=== PATIENT | male | born 1940 | race Caucasian/White ===

== ENCOUNTER 2023-06-11 09:20 | Outpatient (AMB) | payer MEDICARE, SELFPAY ==
--- NOTE | 2023-06-11 09:50 | AM.OFFWIN_ITS ---
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 Patient states he was walking up the stairs and tripped on the stairs and fell onto his left hand. He denies any head trauma or loss of consciousness. He states he hurt his left 3rd and 4th fingers. He denies any pain of his left hand or left wrist or left elbow or left shoulder. He denies any other injury. [facility]LY [facility] Social History Patient Tobacco Use Status: Never used Tobacco Review of Systems Const All systems reviewed & are unremarkable except as noted in HPI and below Reports no additional complaints Eyes Reports no additional complaints ENT Reports no additional complaints Card Reports no additional complaints Resp Reports no additional complaints GI Reports no additional complaints Reports no additional complaints Musc Reports no additional complaints Skin/Breast Reports system reviewed and no additional complaints, except as documented Neuro Reports no additional complaints Psych Reports no additional complaints Endo Reports no additional complaints Lenin/Lymph Reports no additional complaints Aller/Immun Reports no additional complaints Physical Exam Vital Signs: Last Vital Signs Temp 97.8 F 06/11/23 09:56 Pulse 9 L 06/11/23 09:56 BP 140/60 H 06/11/23 09:56 Pulse Ox 98 06/11/23 09:56 Oxygen Delivery Method Room Air 06/11/23 09:56 BMI result Body Mass Index 23.3 Const Other: Vital signs reviewed. Constitutional: Non-toxic appearing. No acute distress. Well-developed and well-nourished. HEENT: Normocephalic and atraumatic. Skin: Warm and dry. No rashes or lesions noted. Neck: Full and painless range of motion. No cervical lymphadenopathy. Cardio: Regular rate and rhythm. No lower extremity edema. No JVD. Pulmonary: No respiratory distress. No accessory muscle usage. Gastrointestinal: Soft, nontender, and nondistended in all 4 quadrants. Musculoskeletal: There is swelling, ecchymosis, and tenderness to palpation of the left 3rd and 4th fingers. No swelling, ecchymosis, or tenderness to palpation of the left hand or wrist. He has full and painless range of motion of the left wrist. He has decreased range of motion of the left 3rd and 4th fingers due to swelling and pain. Neuro: Alert and oriented x4. Cranial nerves 2-12 grossly intact. No focal deficits appreciated. Psych: Normal mood and affect. Assessment & Plan Assessment & Plan (1) Injury of left middle finger: Code(s): S69.92XA - Unspecified injury of left wrist, hand and finger(s), initial encounter Qualifiers: Encounter type: initial encounter Qualified Code(s): S69.92XA - Unspecified injury of left wrist, hand and finger(s), initial encounter (2) Injury of left ring finger: Code(s): S69.92XA - Unspecified injury of left wrist, hand and finger(s), initial encounter Qualifiers: Encounter type: initial encounter Qualified Code(s): S69.92XA - Unspecified injury of left wrist, hand and finger(s), initial encounter Plan This is an 82-year-old male who presented to the walk-in clinic complaining of left 3rd and 4th finger pain, swelling, and bruising status post a mechanical fall. Differential diagnosis includes fracture versus sprain/strain. X-ray of the left hand was obtained for further evaluation; upon my evaluation of the x- rays, there is no obvious fracture or dislocation of his fingers. Recommended rest/activity modification, ice to the area, and continue with acetaminophen/ibuprofen for pain management as long as patient has no medical contraindications. Patient's fingers were splinted and bryant-taped with good capillary refill. Patient was advised to follow-up here or proceed to the emergency room for persistent or worsening symptoms. Patient verbalizes understanding and he is in agreement with the plan. Orders: Orders XR hand LT 2V Today M79.645 - Pain in left finger(s) Coding Level of Care Code Est Pt Level 3 (76616) Diagnoses Injury of left middle finger, initial encounter S69.92XA Encounter type: initial encounter Injury of left ring finger, initial encounter S69.92XA Encounter type: initial encounter
[2023-06-11 09:56] VITALS: BP 140/60; PULSE 9; TEMP 36.6; O2SAT 98; BMI 23.3
== END 2023-06-11 11:16 | disposition home or self-care (01) ==
PROVIDERS: PCP Internal Medicine; Visit Provider Physician Assistant Medical
DX: S69.92XA Unspecified injury of left wrist, hand and finger(s), initial encounter (principal)
CPT/HCPCS: 99213

== ENCOUNTER 2023-06-11 10:17 | Outpatient (REF) | payer MEDICARE, SELFPAY ==
--- NOTE | ~2023-06-11 | XR_ITS ---
EXAMINATION: XR HAND, LEFT CLINICAL INFORMATION: Left finger pain. COMPARISON: None available. TECHNIQUE: PA, lateral, and oblique views of the left hand. FINDINGS: Decreased bone mineralization. Alignment is anatomic. Radiocarpal joint space narrowing. No displaced fracture. No erosions or soft tissue calcifications. Radial arterial vascular calcifications. XR/XR hand LT 2V IMPRESSION: No acute abnormality.
== END 2023-06-11 10:18 | disposition home or self-care (01) ==
LOC: HO.HMGCX 10:17
PROVIDERS: Visit Provider Physician Assistant Medical
DX: M79.645 Pain in left finger(s) (principal)
CPT/HCPCS: 73120

== ENCOUNTER 2023-06-22 08:40 | Outpatient (AMB) | payer MEDICARE, SELFPAY ==
[2023-06-22 09:33] VITALS: BP 140/62; PULSE 76; TEMP 36.4; O2SAT 98; BMI 23.0
--- NOTE | 2023-06-22 09:33 | AM.OFFWIN_ITS ---
Intake Vital Signs 06/22/23 09:33 Height 5 ft 5 in Weight 138 lb BMI 23.0 BP 140/62 H Blood Pressure Location Lt brachial Position Sitting Pulse 76 Temp 97.6 F Temp Source Oral Pulse Oximetry (%) 98 Oxygen Delivery Method Room Air Intake Visit Reasons: EP Rash Arm/leg Intake Note: pt is here for c.o rash on leg due to fall, and right forarm has a rash also around a scar Patient Tobacco Use Status: Never used Tobacco Allergies phenobarbital [PHENOBARBITAL] Allergy (Unknown, Verified 06/22/23 09:38) UNKNOWN Do you need a note to return to daycare/school/sports/work: No HPI HPI Comments History of Present Illness Details Patient is an 82-year-old male in today for a sick visit. Patient stat es he has a rash on his left lower extremity after falling and scraping the front of his plascencia x7 days ago. He states that he initially had the scrape wrapped up with the adhesive bandage, when he removed the bandage she noticed that his leg was red and itchy. Denies any drainage out of the scrape. Denies any fever. Patient states that his primary concern is how much it itches, he denies any pain. PFSH Social History Patient Tobacco Use Status: Never used Tobacco Review of Systems Const Details: Constitutional : No Weight loss, No Fever, No Chills, No Fatigue, No Malaise ENT/Mouth : No sore throat, No Rhinorrhea Eyes: No Eye Pain, No Swelling, No Redness Cardiovascular : No Chest Pain, No SOB, No Dyspnea on Exertion, No Orthopnea, No Edema, No Palpitations Respiratory : No Cough, No Sputum, No Wheezing Gastrointestinal : No Nausea, No Vomiting, No Diarrhea, No Constipation, No abdominal Pain, No Hematochezia, No Melena Genitourinary : No Dysuria, No Urinary Frequency, No Hematuria, Musculoskeletal : No joint pain, No Myalgias, No Joint Swelling Skin : Admits rash on right plascencia. Itchy, no drainage. Neuro : No Weakness, No Numbness, No Dizziness, No Headache Psych : No Anxiety/Panic, No Depression Heme/Lymph: No Bruising, No Bleeding,No Lymphadenopathy Endocrine : No Polyuria, No Polydipsia All other systems reviewed and are negative Physical Exam Vital Signs: Last Vital Signs Temp 97.6 F 06/22/23 09:33 Pulse 76 06/22/23 09:33 BP 140/62 H 06/22/23 09:33 Pulse Ox 98 06/22/23 09:33 Oxygen Delivery Method Room Air 06/22/23 09:33 BMI result Body Mass Index 23.0 Const Other: Appearance: Alert.? Oriented X3.? No acute distress.? Neck: Normal inspection.? Neck supple.? CVS: Normal heart rate and rhythm.? Pulses normal.? Respiratory: No respiratory distress.? Breath sounds normal.? Skin: Raised, erythema, rash. No drainage. No pain. Pinkprick bumps. Extremities: No lower extremity edema.? No calf ttp. 5/5 strength to bilateral upper and lower extremities Back: No midline tenderness, no C-spine tenderness, full range of motion, no CVA tenderness bilaterally Neuro: Oriented X 3.? No motor deficit.? No sensory deficit. CN 2-12 intact Assessment & Plan Assessment & Plan (1) Urticaria: Comment: Patient most likely has allergic reaction to bandage adhesive he put over his scrape. The pattern and look of the rash resemble that of a bandage. Appears allergic in nature. Patient will also be covered for cellulitis. Code(s): L50.9 - Urticaria, unspecified Plan: Take your medications as prescribed. If you were prescribed antibiotics today, it is important that you take your medication to their entirety, do not skip any doses, do not finish them early. Follow-up with your primary care provider this week. Return to the emergency department with new or worsening symptoms. Such as fevers, chills, chest pain, shortness of breath, nausea, vomiting, dizziness, headache, vision changes, lethargy In case of emergency call 911 Plan Follow-up with PCP. Medications: New cetirizine (All Day Allergy (cetirizine)) 10 mg PO DAILY 30 caps 0RF prednisone 40 mg (2 x 20 mg) PO DAILY 10 tabs 0RF cephalexin 500 mg PO QID 28 caps 0RF Coding Level of Care Code Est Pt Level 3 (51992) Diagnoses Urticaria L50.9 Time Spent (min) 35
== END 2023-06-22 11:31 | disposition home or self-care (01) ==
PROVIDERS: PCP Internal Medicine; Visit Provider Nurse Practitioner Primary Care
DX: L50.9 Urticaria, unspecified (principal)
CPT/HCPCS: 99213

== ENCOUNTER 2023-08-13 08:24 | Outpatient (AMB) | payer MEDICARE, SELFPAY ==
[2023-08-13 09:00] VITALS: BP 160/70; TEMP -13.6; TEMP 7.5; BMI 22.8
--- NOTE | 2023-08-13 09:00 | MHC.OFFWIV ---
Intake Vital Signs 08/13/23 09:00 Height 5 ft 5 in Weight 137 lb BMI 22.8 BP 160/70 H Blood Pressure Location Lt brachial Position Sitting Temp 7.5 F L Temp Source Temporal Artery Scan Intake Visit Reasons: EP Cut RT foot ?Infection Intake Note: pt is here today for cut rt foot infection started1 week ago Patient Tobacco Use Status: Never used Tobacco Allergies adhesive tape Allergy (Intermediate, Verified 08/13/23 09:04) Hives phenobarbital [PHENOBARBITAL] Allergy (Unknown, Verified 08/13/23 09:04) UNKNOWN Do you need a note to return to daycare/school/sports/work: No HPI HPI Comments History of Present Illness Details 82 y/o male patient who presents to walk in clinic today with c/o Cut on right foot. Pt reports he was getting in his Shower/Tub last week and his foot hit the Aluminium shower door. He has noticed some swelling and redness. Tender to touch, and the area is oozing yellow fluid. PFSH Social History Patient Tobacco Use Status: Never used Tobacco Review of Systems Const All systems reviewed & are unremarkable except as noted in HPI and below Physical Exam Vital Signs: Last Vital Signs Temp 7.5 F L 08/13/23 09:00 BP 160/70 H 08/13/23 09:00 BMI result Body Mass Index 22.8 Const General: comfortable and no acute distress Orientation/consciousness: patient oriented x3 Skin Rashes: rashes noted (right foot) Wounds: wounds noted (Right Anterior Foot, small cut redness, tender and oozing blood/pus) Nails: discolored and yellow and thickened Neuro General: patient oriented x3 Extrem Right lower extremity: foot Details: normal capillary refill, tenderness, toes with normal ROM, warmth and edema Location: of the dorsal foot and of the calcaneus Assessment & Plan Assessment & Plan (1) Cellulitis: Code(s): L03.90 - Cellulitis, unspecified Qualifiers: Site of cellulitis: extremity Site of cellulitis of extremity: lower extremity Laterality: right Qualified Code(s): L03.115 - Cellulitis of right lower limb Plan: - Keflex 500 mg for 7 days - Dressed the wound with Kerlix roll and Xeroform - Elevate Foot at home (2) Rash: Code(s): R21 - Rash and other nonspecific skin eruption Plan: -Probably Dermatitis vs Fungal - Topical cream Rxd. Medications: New cephalexin 500 mg PO BID 14 caps 0RF 7 days L03.115 - Cellulitis of right lower limb clotrimazole-betamethasone 1-0.05 % 1 appl topical BID 45 grams 0RF 2 weeks R21 - Rash and other nonspecific skin eruption Discontinued cephalexin Discontinued Reason: Patient Completed Course 500 mg PO QID 28 caps 0RF Coding Level of Care Code Est Pt Level 4 (94389) Diagnoses Cellulitis of right lower extremity L03.115 Site of cellulitis: extremity Site of cellulitis of extremity: lower extremity Laterality: right Rash R21 Time Spent (min) 15
== END 2023-08-13 10:29 | disposition home or self-care (01) ==
PROVIDERS: PCP Internal Medicine; Visit Provider Nurse Practitioner Family
DX: L03.115 Cellulitis of right lower limb (principal); R21 Rash and other nonspecific skin eruption
CPT/HCPCS: 99214